=== PATIENT | female | born 1980 | race Caucasian/White ===

== ENCOUNTER → 2017-02-12 | Outpatient (CLI) | payer BC ==
[2017-02-12 10:03] LABS: Basophils % (A) 0 %; CH 31.6; CHCM 33.2; Eosinophils # (A) 0.3 k/uL (0-0.7); Eosinophils % (A) 3 %; HDW 2.39; HGB 13.2 gm/dL (11.4-16.0); Luc # (Auto) 0.09; Luc % (Auto) 1; Lymphocytes # (A) 1.9 k/uL (1.0-4.8); Lymphocytes % (A) 23 %; MCH 31.6 pg (25.0-35.0); MCV 95.9 fL (80.0-100.0); Mean Platelet Volume 7.9; Monocytes # (A) 0.5 k/uL (0-1.0); Monocytes % (A) 6 %; Neutrophils # (A) 5.6 k/uL (1.3-7.7); Neutrophils % (A) 67 %; RBC 4.17 m/uL (3.80-5.40); RDW 13.5 % (11.5-15.5); WBC 8.3 k/uL (3.8-10.6); WBC (Perox) 8.61
--- NOTE | 2017-02-12 10:05 | XR ---
EXAMINATION TYPE: XR chest 2V DATE OF EXAM: 02/12/2017 COMPARISON: NONE TECHNIQUE: PA and lateral views submitted. HISTORY: Congestion FINDINGS: The lungs are clear and there is no pneumothorax, pleural effusion, or focal pneumonia. IMPRESSION: 1. No acute process.
[2017-02-12 11:03] LABS: ALT 37 U/L (9-52); AST 25 U/L (14-36); Alkaline Phosphatase 85 U/L (38-126); Anion Gap 8 mmol/L; Blood Urea Nitrogen 11 mg/dL (7-17); Calcium 9.6 mg/dL (8.4-10.2); Carbon Dioxide 26 mmol/L (22-30); Chloride 107 mmol/L (98-107); Cholesterol 149 mg/dL (<200); Glucose 106 mg/dL (74-99); HDL Cholesterol 42 mg/dL (40-60); Non-African American GFR(MDRD) >60 (>60 ml/min/1.73 sqM); Potassium 4.2 mmol/L (3.5-5.1); Sodium 141 mmol/L (137-145); Total Bilirubin 0.7 mg/dL (0.2-1.3); Total Protein 6.8 g/dL (6.3-8.2)
== END | disposition home or self-care (01) ==
LOC: LABWHC1 09:16
PROVIDERS: ATTEND Family Medicine
DX: R05 Cough (principal); F33.1 Major depressive disorder, recurrent, moderate; I10 Essential (primary) hypertension; Z79.899 Other long term (current) drug therapy
CPT/HCPCS: 36415; 71020; 80053; 80061; 84439; 84443; 85025

== ENCOUNTER → 2017-03-28 | Outpatient (CLI) | payer BC ==
[2017-03-28 12:15] LABS: MCH 32.2 pg (25.0-35.0); MCHC 33.4 g/dL (31.0-37.0); MCV 96.2 fL (80.0-100.0); Mean Platelet Volume 7.4; Platelet Count 292 k/uL (150-450); RBC 4.05 m/uL (3.80-5.40); RDW 12.6 % (11.5-15.5); WBC 7.5 k/uL (3.8-10.6)
[2017-03-28 12:41] LABS: Anion Gap 11 mmol/L; Blood Urea Nitrogen 14 mg/dL (7-17); Calcium 9.2 mg/dL (8.4-10.2); Carbon Dioxide 25 mmol/L (22-30); Chloride 106 mmol/L (98-107); Glucose 91 mg/dL (74-99); Potassium 4.2 mmol/L (3.5-5.1); Sodium 142 mmol/L (137-145)
[2017-03-28 12:58] LABS: T4, Free (Free Thyroxine) 1.18 ng/dL (0.78-2.19)
== END | disposition home or self-care (01) ==
LOC: LABWHC1 11:42
PROVIDERS: ATTEND Family Medicine
DX: J20.9 Acute bronchitis, unspecified (principal); R05 Cough; F33.1 Major depressive disorder, recurrent, moderate; R94.6 Abnormal results of thyroid function studies
CPT/HCPCS: 36415; 80048; 83519; 84439; 84443; 84481; 85027; 85379

== ENCOUNTER 2017-09-08 15:31 | Emergency (ER) | payer BC, OTHER ==
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
--- NOTE | 2017-09-08 17:25 | XR ---
EXAMINATION TYPE: XR facial bones limited DATE OF EXAM: 09/08/2017 COMPARISON: NONE HISTORY: Pain TECHNIQUE: 2 view facial bones FINDINGS: There is a radiopaque foreign body along the lateral nares. Septum is midline. The paranasal sinuses are clear. Sella is unremarkable. No suspicious air-fluid le vels or mucosal thickening is evident. Piercing is at the right ear. IMPRESSION: 1. Unremarkable 2 view facial bones.
[2017-09-08 17:45] VITALS: BP 143/88; PULSE 64; RESP 18; TEMP 98.2
== END 2017-09-08 17:45 | disposition home or self-care (01) ==
LOC: EC 15:31
DX: L03.211 Cellulitis of face (principal); I10 Essential (primary) hypertension; F32.9 Major depressive disorder, single episode, unspecified; Z87.891 Personal history of nicotine dependence; Z79.899 Other long term (current) drug therapy; Z88.0 Allergy status to penicillin
CPT/HCPCS: 70140; 99283

== ENCOUNTER 2017-09-10 12:23 | Emergency (ER) | payer BC, OTHER ==
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
[2017-09-10 13:39] VITALS: BP 117/68; PULSE 65; RESP 16; TEMP 98.7
== END 2017-09-10 13:39 | disposition home or self-care (01) ==
LOC: EC 12:23
DX: H10.9 Unspecified conjunctivitis (principal); I10 Essential (primary) hypertension; F32.9 Major depressive disorder, single episode, unspecified; Z87.891 Personal history of nicotine dependence; Z79.899 Other long term (current) drug therapy; Z88.0 Allergy status to penicillin
CPT/HCPCS: 99283

== ENCOUNTER 2020-12-11 21:38 | Emergency (ER) | payer OTHER ==
[2020-12-11 21:51] VITALS: BP 111/64; PULSE 89; RESP 18; TEMP 98.7
--- NOTE | 2020-12-11 22:20 | XR ---
EXAMINATION TYPE: XR chest 2V DATE OF EXAM: 12/11/2020 COMPARISON: 02/12/2017 HISTORY: Cough and short of breath TECHNIQUE: FINDINGS: Heart and mediastinum are normal. Lungs are clear. Diaphragm is normal. Bony thorax is intact. IMPRESSION: Normal chest. No change.
--- NOTE | 2020-12-11 23:46 | ED ---
General Adult HPI - General Chief complaint: Upper Respiratory Infection Stated complaint: shortness of breath; hx of covid 2019 Time Seen by Provider: 12/11/20 23:20 Source: patient Mode of arrival: ambulatory Limitations: no limitations - History of Present Illness Initial comments: 40-year-old female with a past medical history of hypertension, GERD presents to the emergency room for a chief complaint of not feeling well. Patient states for the past few days she has had a cough and congestion. Patient does have a history of asthma. Denies shortness of breath at this time. Does have an inhaler at home however it is almost out. Patient states she was sick a few weeks ago and yesterday got over it when she started to get worse again. Denies fevers.Patient has no other complaints at this time including shortness of breath, chest pain, abdominal pain, nausea or vomiting, headache, or visual changes. - Related Data Home Medications Medication Instructions Recorded Confirmed Furosemide [Lasix] 20 mg PO DAILY 07/18/13 09/10/17 Labetalol HCl 300 mg PO BID 07/18/13 09/10/17 amLODIPine BESYLATE [Norvasc] 5 mg PO BID 07/18/13 09/10/17 Citalopram Hydrobromide [CeleXA] 20 mg PO DAILY 09/10/17 09/10/17 Previous Rx's Medication Instructions Recorded Sulfamethox-Tmp 800-160Mg [Bactrim 2 tab PO Q12HR 10 Days #40 tab 09/08/17 DS 800-160 mg] Polymyxin B-Trimeth Sulf Ophth 1 drops BOTH EYES Q6H 10 Days #5 ml 09/10/17 [Polytrim Opthalmic] Albuterol Inhaler [Ventolin Hfa 2 puff INHALATION RT-QID PRN #8 gm 12/11/20 Inhaler] Azithromycin [Zithromax Z-pack (6 250 mg PO DIRECTED #6 tab 12/11/20 tabs)] predniSONE 50 mg PO DAILY #5 tablet 12/11/20 Allergies Allergy/AdvReac Type Severity Reaction Status Date / Time Penicillins Allergy Mild Rash/Hives Verified 12/11/20 21:48 Review of Systems ROS Statement: Those systems with pertinent positive or pertinent negative responses have been documented in the HPI. ROS Other: All systems not noted in ROS Statement are negative. Past Medical History Past Medical History: GERD/Reflux, Hypertension Additional Past Medical History / Comment(s): Preeclampsia- May 28 2013 History of Any Multi-Drug Resistant Organisms: None Reported Past Surgical History: Adenoidectomy, Section, Cholecystectomy, Orthopedic Surgery, Tonsillectomy Additional Past Surgical History / Comment(s): pre eclampsia, c section 05/28/13 Knee arthroplasty Past Anesthesia/Blood Transfusion Reactions: Previous Problems w/ Anesthesia, Postoperative Nausea & Vomiting (PONV) Past Psychological History: Depression Smoking Status: Current every day smoker Past Alcohol Use History: Occasional Past Drug Use History: None Reported - Past Family History Father Brother(s) Family Medical History: GERD/Reflux, Hypertension Additional Family Medical History / Comment(s): BRONCHITIS, HAD GALLBLADDER SX 07-20- HAS INCISONS General Exam Limitations: no limitations General appearance: alert, in no apparent distress Head exam: Present: atraumatic Eye exam: Present: normal appearance, PERRL, EOMI. Absent: scleral icterus, conjunctival injection ENT exam: Present: normal exam, mucous membranes moist Neck exam: Present: normal inspection, full ROM. Absent: tenderness Respiratory exam: Present: wheezes (Minimal wheeze on exam). Absent: respiratory distress Cardiovascular Exam: Present: regular rate, normal rhythm, normal heart sounds Course Vital Signs 12/11/20 21:48 Temperature 98.7 F Pulse Rate 89 Respiratory 18 Rate Blood Pressure 111/64 O2 Sat by Pulse 92 L Oximetry Medical Decision Making - Medical Decision Making Vitals are stable. Patient is well-appearing. HPI and physical exam as documented. Rotavirus is negative. Chest x-ray shows a normal chest, no change. Patient is taking Mucinex which she will continue. Given asthma we'll start her on prednisone and give her another inhaler. Given she recently had an illness and then got worse again we will treat her with an antibiotic. She is ALLERGIC to amoxicillin. Patient will follow-up with her doctor. She will return for any worsening symptoms. - Lab Data Lab Results 12/11/20 Range/Units 21:51 Coronavirus (PCR) Not Detected (Not Detectd) Disposition Clinical Impression: Cough, Sinusitis Disposition: HOME SELF-CARE Condition: Good Instructions (If sedation given, give patient instructions): Upper Respiratory Infection (ED) Additional Instructions: Take medications as directed. Follow-up with your doctor. Return to the emergency room for any worsening symptoms. Prescriptions: predniSONE 50 mg PO DAILY #5 tablet Albuterol Inhaler [Ventolin Hfa Inhaler] 2 puff INHALATION RT-QID PRN #8 gm PRN Reason: Shortness Of Breath Azithromycin [Zithromax Z-pack (6 tabs)] 250 mg PO DIRECTED #6 tab Is patient prescribed a controlled substance at d/c from ED?: No Referrals: Lake Justice Jr, [Primary Care Provider] - 1-2 days Time of Disposition: 23:45
[2020-12-11] MEDS ORDERED: predniSONE 50 MG TAB PO STA (23:47)
[2020-12-11] MEDS ORDERED: AZITHROMYCIN 500 MG TAB PO STA (23:47)
== END 2020-12-12 00:14 | disposition home or self-care (01) ==
LOC: EC 21:38
DX: R05 Cough (principal); J32.9 Chronic sinusitis, unspecified; I10 Essential (primary) hypertension; K21.9 Gastro-esophageal reflux disease without esophagitis; F32.9 Major depressive disorder, single episode, unspecified; F17.200 Nicotine dependence, unspecified, uncomplicated; Z90.89 Acquired absence of other organs; Z20.822 Contact with and (suspected) exposure to COVID-19; Z88.0 Allergy status to penicillin; Z90.49 Acquired absence of other specified parts of digestive tract; Z87.59 Personal history of other complications of pregnancy, childbirth and the puerperium; Z79.899 Other long term (current) drug therapy
CPT/HCPCS: 99283; 87635; 71046; J7512

== ENCOUNTER 2022-08-15 12:28 | Emergency (ER) | payer OTHER ==
[2022-08-15 12:33] VITALS: RESP 18; TEMP 98.1
--- NOTE | 2022-08-15 13:04 | ED ---
Abdominal Pain HPI - General Chief Complaint: Abdominal Pain Stated Complaint: 5 weeks spotting Time Seen by Provider: 08/15/22 12:34 Source: patient, RN notes reviewed Mode of arrival: ambulatory Limitations: no limitations - History of Present Illness Initial Comments: 42-year-old female presents emergency Department with chief complaint of moderate abdominal pain, vaginal bleeding early . Patient is A0 she was she's around 5 weeks states that she started having some spotting yesterday which has worsened. Patient states she has mild discomfort in which she contacted her PIECE MAKER's office recommended to come emergency from for evaluation. She is O- blood type. Patient states she is seen an PIECE MAKER on a cardiac because she was listed as high risk as she has a history of help syndrome and states that she is advanced maternal age. Patient denies any dysuria no fevers chills no nausea vomiting. No change in bowel habits. - Related Data Home Medications Medication Instructions Recorded Confirmed Furosemide [Lasix] 20 mg PO DAILY 07/18/13 09/10/17 Labetalol HCl 300 mg PO BID 07/18/13 09/10/17 amLODIPine BESYLATE [Norvasc] 5 mg PO BID 07/18/13 09/10/17 Citalopram Hydrobromide [CeleXA] 20 mg PO DAILY 09/10/17 09/10/17 Previous Rx's Medication Instructions Recorded Sulfamethox-Tmp 800-160Mg [Bactrim 2 tab PO Q12HR 10 Days #40 tab 09/08/17 DS 800-160 mg] Polymyxin B-Trimeth Sulf Ophth 1 drops BOTH EYES Q6H 10 Days #5 ml 09/10/17 [Polytrim Opthalmic] Albuterol Inhaler [Ventolin Hfa 2 puff INHALATION RT-QID PRN #8 gm 12/11/20 Inhaler] Azithromycin [Zithromax Z-pack (6 250 mg PO DIRECTED #6 tab 12/11/20 tabs)] predniSONE 50 mg PO DAILY #5 tablet 12/11/20 Allergies Allergy/AdvReac Type Severity Reaction Status Date / Time Penicillins Allergy Mild Rash/Hives Verified 08/15/22 12:33 Review of Systems ROS Statement: Those systems with pertinent positive or pertinent negative responses have been documented in the HPI. ROS Other: All systems not noted in ROS Statement are negative. Past Medical History Past Medical History: GERD/Reflux, Hypertension Additional Past Medical History / Comment(s): Preeclampsia- May 28 2013 History of Any Multi-Drug Resistant Organisms: None Reported Past Surgical History: Adenoidectomy, Section, Cholecystectomy, Orthopedic Surgery, Tonsillectomy Additional Past Surgical History / Comment(s): pre eclampsia, c section 05/28/13 Knee arthroplasty Past Anesthesia/Blood Transfusion Reactions: Previous Problems w/ Anesthesia, Postoperative Nausea & Vomiting (PONV) Past Psychological History: Depression Smoking Status: Current every day smoker Past Alcohol Use History: Occasional Past Drug Use History: None Reported - Past Family History Father Brother(s) Family Medical History: GERD/Reflux, Hypertension Additional Family Medical History / Comment(s): BRONCHITIS, HAD GALLBLADDER SX 07-20-13 HAS INCISONS General Exam Limitations: no limitations General appearance: alert, in no apparent distress Head exam: Present: atraumatic, normocephalic, normal inspection Eye exam: Present: normal appearance, PERRL, EOMI. Absent: scleral icterus, conjunctival injection, periorbital swelling Respiratory exam: Present: normal lung sounds bilaterally. Absent: respiratory distress, wheezes, rales, rhonchi, stridor Cardiovascular Exam: Present: regular rate, normal rhythm, normal heart sounds. Absent: systolic murmur, diastolic murmur, rubs, gallop, clicks GI/Abdominal exam: Present: soft, normal bowel sounds. Absent: distended, tenderness, guarding, rebound, rigid Back exam: Absent: CVA tenderness (R), CVA tenderness (L) Neurological exam: Present: alert Course Vital Signs 08/15/22 08/15/22 12:29 15:32 Temperature 98.1 F Pulse Rate 82 65 Respiratory 18 18 Rate Blood Pressure 146/92 144/82 O2 Sat by Pulse 99 97 Oximetry Medical Decision Making - Medical Decision Making Was pt. sent in by a medical professional or institution (, PA, CRUSHER AND BINDER OPERATOR, urgent care, hospital, or [facility]...) When possible be specific @ -[No] Did you speak to anyone other than the patient for history (EMS, parent, family, police, friend...)? What history was obtained from this source @ -[No] Did you review nursing and triage notes (agree or disagree)? Why? @ -[I reviewed and agree with nursing and triage notes] Were old charts reviewed (outside hosp., previous admission, EMS record, old EKG, old radiological studies, urgent care reports/EKG's, [facility] records)? Report findings @ -[No old charts were reviewed] Differential Diagnosis (chest pain, altered mental status, abdominal pain women, abdominal pain men, vaginal bleeding, weakness, fever, dyspnea, syncope, headache, dizziness, GI bleed, back pain, seizure, CVA, palpatations, mental health, musculoskeletal)? @ -[Differential Abdominal Pain Women: Appendicitis, Cholecystitis, diverticulosis, ischemic bowel, pancreatitis, hepatitis, UTI, gastroenteritis, AAA, incarcerated hernia, bowel obstruction, constipation, inflammatory bowel, hepatitis, peptic ulcer disease, splenic infarction, perforated viscus, vulvitis, ovarian torsion, PID, kidney stone, placenta abruption, this is not meant to be an all-inclusive listle] EKG interpreted by me (3pts min.). @ -[As above] X-rays interpreted by me (1pt min.). @ -[None done] CT interpreted by me (1pt min.). @ -[Ultrasound transvaginal shows evidence of left complex, no IUP] U/S interpreted by me (1pt. min.). @ -[None done] What testing was considered but not performed or refused? (CT, X-rays, U/S, labs)? Why? @ -[None] What meds were considered but not given or refused? Why? @ -[None] Did you discuss the management of the patient with other professionals (professionals i.e. , PA, CRUSHER AND BINDER OPERATOR, lab, RT, psych nurse, social work supervisor, database admin, teacher, customs officer, case checker)? Give summary @ -[Discussed the case with Dr. Luna given patient is O- blood type and current miscarriage she states that the patient does not require RhoGAM as she did not complete to 8 weeks] Was smoking cessation discussed for >3mins.? @ -[No] Was critical care preformed (if so, how long)? @ -[No] Were there social determinants of health that impacted care today? How? (Homelessness, low income, unemployed, alcoholism, drug addiction, transportation, low edu. Level, literacy, decrease access to med. care, group home, rehab)? @ -[No] Was there de-escalation of care discussed even if they declined (Discuss DNR or withdrawal of care, Hospice)? DNR status @ -[No] What co-morbidities impacted this encounter? (DM, HTN, Smoking, COPD, CAD, Cancer, CVA, ARF, Chemo, Hep., AIDS, mental health diagnosis, sleep apnea, morbid obesity)? @ -[None] Was patient admitted / discharged? Hospital course, mention meds given and route, prescriptions, significant lab abnormalities, going to OR and other pertinent info. @ -[Discharge patient has evidence of miscarriage. Patient's case discussed with Dr. Luna. Patient does not require RhoGAM. Patient had repeat labs in 2 days.] Undiagnosed new problem with uncertain prognosis? @ -[No] Drug Therapy requiring intensive monitoring for toxicity (Heparin, Nitro, Insulin, Cardizem)? @ -[No] Were any procedures done? @ -[No] Diagnosis/symptom? @ -[Miscarriage] Acute, or Chronic, or Acute on Chronic? @ -[Acute] Uncomplicated (without systemic symptoms) or Complicated (systemic symptoms)? @ -[Uncomplicated] Side effects of treatment? @ -[No] Exacerbation, Progression, or Severe Exacerbation? @ -[No] Poses a threat to life or bodily function? How? (Chest pain, USA, MT, pneumonia, PE, COPD, DKA, ARF, appy, cholecystitis, CVA, Diverticulitis, Homicidal, Suicidal, threat to staff... and all critical care pts) @ -[No] - Lab Data Result diagrams: 08/15/22 12:57 08/15/22 12:57 Lab Results 08/15/22 08/15/22 08/15/22 Range/Units 12:57 12:57 12:58 WBC 7.8 (3.8-10.6) k/uL RBC 4.36 (3.80-5.40) m/uL Hgb 14.0 (11.4-16.0) gm/dL Hct 41.4 (34.0-46.0) % MCV 94.9 (80.0-100.0) fL MCH 32.1 (25.0-35.0) pg MCHC 33.8 (31.0-37.0) g/dL RDW 12.4 (11.5-15.5) % Plt Count 262 (150-450) k/uL MPV 7.7 Neutrophils % 64 % Lymphocytes % 27 % Monocytes % 5 % Eosinophils % 3 % Basophils % 0 % Neutrophils # 5.1 (1.3-7.7) k/uL Lymphocytes # 2.1 (1.0-4.8) k/uL Monocytes # 0.4 (0-1.0) k/uL Eosinophils # 0.2 (0-0.7) k/uL Basophils # 0.0 (0-0.2) k/uL Sodium 139 (137-145) mmol/L Potassium 4.0 (3.5-5.1) mmol/L Chloride 107 (98-107) mmol/L Carbon Dioxide 23 (22-30) mmol/L Anion Gap 9 mmol/L BUN 10 (7-17) mg/dL Creatinine 0.72 (0.52-1.04) mg/dL Est GFR (CKD-EPI)AfAm >90 (>60 ml/min/1.73 sqM) Est GFR (CKD-EPI)NonAf >90 (>60 ml/min/1.73 sqM) Glucose 141 H (74-99) mg/dL Calcium 8.9 (8.4-10.2) mg/dL Total Bilirubin 0.9 (0.2-1.3) mg/dL AST 28 (14-36) U/L ALT 25 (4-34) U/L Alkaline Phosphatase 69 (38-126) U/L Total Protein 6.8 (6.3-8.2) g/dL Albumin 4.3 (3.5-5.0) g/dL HCG, Quant 6.2 mIU/mL Urine Color Urine Appearance (Clear) Urine pH (5.0-8.0) Ur Specific [place] (1.001-1.035) Urine Protein (Negative) Urine Glucose (UA) (Negative) Urine Ketones (Negative) Urine Blood (Negative) Urine Nitrite (Negative) Urine Bilirubin (Negative) Urine Urobilinogen (<2.0) mg/dL Ur Leukocyte Esterase (Negative) Urine RBC (0-5) /hpf Urine WBC (0-5) /hpf Ur Squamous Epith Cells (0-4) /hpf Urine Mucus (None) /hpf Blood Type O Negative Blood Type Recheck O Neg Bld Type Recheck Status No Antibody Screen 08/15/22 08/15/22 Range/Units 12:58 13:46 WBC (3.8-10.6) k/uL RBC (3.80-5.40) m/uL Hgb (11.4-16.0) gm/dL Hct (34.0-46.0) % MCV (80.0-100.0) fL MCH (25.0-35.0) pg MCHC (31.0-37.0) g/dL RDW (11.5-15.5) % Plt Count (150-450) k/uL MPV Neutrophils % % Lymphocytes % % Monocytes % % Eosinophils % % Basophils % % Neutrophils # (1.3-7.7) k/uL Lymphocytes # (1.0-4.8) k/uL Monocytes # (0-1.0) k/uL Eosinophils # (0-0.7) k/uL Basophils # (0-0.2) k/uL Sodium (137-145) mmol/L Potassium (3.5-5.1) mmol/L Chloride (98-107) mmol/L Carbon Dioxide (22-30) mmol/L Anion Gap mmol/L BUN (7-17) mg/dL Creatinine (0.52-1.04) mg/dL Est GFR (CKD-EPI)AfAm (>60 ml/min/1.73 sqM) Est GFR (CKD-EPI)NonAf (>60 ml/min/1.73 sqM) Glucose (74-99) mg/dL Calcium (8.4-10.2) mg/dL Total Bilirubin (0.2-1.3) mg/dL AST (14-36) U/L ALT (4-34) U/L Alkaline Phosphatase (38-126) U/L Total Protein (6.3-8.2) g/dL Albumin (3.5-5.0) g/dL HCG, Quant mIU/mL Urine Color Yellow Urine Appearance Clear (Clear) Urine pH 5.5 (5.0-8.0) Ur Specific [place] 1.024 (1.001-1.035) Urine Protein Trace H (Negative) Urine Glucose (UA) Negative (Negative) Urine Ketones Negative (Negative) Urine Blood Large H (Negative) Urine Nitrite Negative (Negative) Urine Bilirubin Negative (Negative) Urine Urobilinogen <2.0 (<2.0) mg/dL Ur Leukocyte Esterase Negative (Negative) Urine RBC >182 H (0-5) /hpf Urine WBC 27 H (0-5) /hpf Ur Squamous Epith Cells 3 (0-4) /hpf Urine Mucus Rare H (None) /hpf Blood Type Blood Type Recheck Bld Type Recheck Status Antibody Screen NEGATIVE Disposition Clinical Impression: Miscarriage Disposition: HOME SELF-CARE Condition: Stable Instructions (If sedation given, give patient instructions): Miscarriage (ED) Additional Instructions: Please return to the Emergency Department if symptoms worsen or any other concerns. Is patient prescribed a controlled substance at d/c from ED?: No Referrals: Ej Brown DO [Primary Care Provider] - 1-2 days Time of Disposition: 15:20
[2022-08-15 13:15] LABS: Basophils % (A) 0 %; Eosinophils # (A) 0.2 k/uL (0-0.7); Eosinophils % (A) 3 %; HCT 41.4 % (34.0-46.0); Lymphocytes # (A) 2.1 k/uL (1.0-4.8); Lymphocytes % (A) 27 %; MCH 32.1 pg (25.0-35.0); MCHC 33.8 g/dL (31.0-37.0); MCV 94.9 fL (80.0-100.0); Mean Platelet Volume 7.7; Monocytes # (A) 0.4 k/uL (0-1.0); Monocytes % (A) 5 %; Neutrophils # (A) 5.1 k/uL (1.3-7.7); Neutrophils % (A) 64 %; Platelet Count 262 k/uL (150-450); RBC 4.36 m/uL (3.80-5.40); RDW 12.4 % (11.5-15.5); WBC 7.8 k/uL (3.8-10.6)
[2022-08-15 13:29] LABS: ALT 25 U/L (4-34); AST 28 U/L (14-36); African American GFR (CKD) >90 (>60 ml/min/1.73 sqM); Albumin 4.3 g/dL (3.5-5.0); Alkaline Phosphatase 69 U/L (38-126); Anion Gap 9 mmol/L; Blood Urea Nitrogen 10 mg/dL (7-17); Calcium 8.9 mg/dL (8.4-10.2); Carbon Dioxide 23 mmol/L (22-30); Chloride 107 mmol/L (98-107); Glucose 141 mg/dL (74-99); Non-African American GFR(CKD) >90 (>60 ml/min/1.73 sqM); Sodium 139 mmol/L (137-145); Total Bilirubin 0.9 mg/dL (0.2-1.3); Total Protein 6.8 g/dL (6.3-8.2)
[2022-08-15 13:45] LABS: HCG,Quantitative Serum 6.2 mIU/mL
[2022-08-15 14:05] LABS: Appearance,Urine Clear (Clear); Bilirubin,Urine Negative (Negative); Blood,Urine Large (Negative); Color,Urine Yellow; Glucose,Urine (UA) Negative (Negative); Ketones,Urine Negative (Negative); Leukocyte Esterase,Urine Negative (Negative); Mucus,Urine Rare /hpf; Nitrite,Urine Negative (Negative); PH, Urine 5.5 (5.0-8.0); Protein,Urine Trace (Negative); RBC,Urine >182 /hpf (0-5); Specific Gravity,Urine 1.024 (1.001-1.035); Squamous Epithelial Cell,Urine 3 /hpf (0-4); Urobilinogen,Urine <2.0 mg/dL (<2.0); WBC,Urine 27 /hpf (0-5)
--- NOTE | 2022-08-15 14:58 | US ---
EXAMINATION TYPE: Transabdominal DATE OF EXAM: 08/15/2022 2:34 PM COMPARISON: None for this , [place] 2012 CLINICAL INDICATION: Female, 42 years old with history of pain, bleeding; Pain, bleeding x 2 days. Hx 1 C section. . EXAM PERFORMED: Transvaginal (TV) and Transabdominal (TA) EXAM MEASUREMENTS: GESTATIONAL AGE / DATING Physician Established: Not yet established Dates by LMP: (5 weeks/1 day) EDC: 04/16/2023 Dates by First Scan: This is first scan Dates by Current Scan for: No IUP seen at this time. MATERNAL ANATOMY Uterus: 8.6 x 6.2 x 4.4 cm. Anechoic fluid seen in cervix: 0.3 x 0.3 x 0.1 cm. Right Ovary: 2.5 x 1.8 x 1.4 cm Left Ovary: 4.1 x 1.7 x 1.8 cm. Complex area seen: 1.9 x 1.6 x 1.5 cm. Post CDS / Adnexa: Appear wnl Presence of free fluid: No Presence of corpus luteal cyst: Possible within left ovary, complex area seen: 1.9 x 1.6 x 1.5 cm. Presence of subchorionic bleed: -- GESTATION / SURVEY IUP: No IUP seen at this time Date of LMP: 07/10/2022 Beta HcG (if available): 6.2 mIU/mL IMPRESSION: No intrauterine seen. There is a complex area measuring 1.9 x 1.5 cm within the left ovary. Small amount of fluid in the ce rvix seen. Differential diagnosis would include ectopic , missed or normal pregnanc y too early to detect. Recommend correlate clinically with serial beta-hCG and pelvic ultrasound as c linically warranted.
[2022-08-15 15:34] VITALS: BP 144/82; PULSE 65
== END 2022-08-15 15:34 | disposition home or self-care (01) ==
LOC: EC 12:28
DX: O03.9 Complete or unspecified spontaneous abortion without complication (principal); I10 Essential (primary) hypertension; F32.A Depression, unspecified; F17.200 Nicotine dependence, unspecified, uncomplicated; Z79.899 Other long term (current) drug therapy; Z88.0 Allergy status to penicillin; Z90.49 Acquired absence of other specified parts of digestive tract
CPT/HCPCS: 36415; 76801; 76817; 80053; 81001; 84702; 85025; 86850; 86900; 86901; 99284

== ENCOUNTER → 2022-08-17 | Outpatient (CLI) | payer OTHER | END | disposition home or self-care (01) | LOC: LABWHC1 14:34 | PROVIDERS: ATTEND Family Medicine | DX: O20.0 Threatened abortion (principal); Z3A.00 Weeks of gestation of pregnancy not specified | CPT/HCPCS: 36415; 84702 ==

== ENCOUNTER 2023-01-18 17:16 | Emergency (ER) | payer OTHER ==
[2023-01-18 18:44] VITALS: RESP 18; TEMP 99
[2023-01-18] MEDS ORDERED: PROPARACAINE 0.5% OPHTH DROPS 15 ML BTL RIGHT EYE STA (19:17)
[2023-01-18] MEDS ORDERED: FLUORESCEIN STRIPS 1 MG STRIP RIGHT EYE ONE (19:17)
[2023-01-18] MEDS ORDERED: valACYclovir HCL 1,000 MG TABLET PO STA (20:34)
--- NOTE | 2023-01-18 20:41 | ED ---
General Adult HPI - General Chief complaint: Recheck/Abnormal Lab/Rx Stated complaint: shingles Time Seen by Provider: 01/18/23 19:15 Source: patient Mode of arrival: ambulatory Limitations: no limitations - History of Present Illness Initial comments: 42-year-old female sent from urgent care with complaints of right eye discomfort. Patient was diagnosed with shingles at urgent care today. Patient states that these symptoms started a few days ago, she was experiencing some tingling along the right side of the back in the arm. She then started to develop painful burning bumps. She states that today she is feeling that same tingling sensation to the right side of her face near her eye and also in her eye. No vision changes. No discharge. No injury or trauma. No fevers or chills. She was started on valacyclovir by urgent care and instructed to report to the ER for further evaluation. - Related Data Home Medications Medication Instructions Recorded Confirmed Furosemide [Lasix] 20 mg PO DAILY 07/18/13 09/10/17 Labetalol HCl 300 mg PO BID 07/18/13 09/10/17 amLODIPine BESYLATE [Norvasc] 5 mg PO BID 07/18/13 09/10/17 Citalopram Hydrobromide [CeleXA] 20 mg PO DAILY 09/10/17 09/10/17 Previous Rx's Medication Instructions Recorded Sulfamethox-Tmp 800-160Mg [Bactrim 2 tab PO Q12HR 10 Days #40 tab 09/08/17 DS 800-160 mg] Polymyxin B-Trimeth Sulf Ophth 1 drops BOTH EYES Q6H 10 Days #5 ml 09/10/17 [Polytrim Opthalmic] Albuterol Inhaler [Ventolin Hfa 2 puff INHALATION RT-QID PRN #8 gm 12/11/20 Inhaler] Azithromycin [Zithromax Z-pack (6 250 mg PO DIRECTED #6 tab 12/11/20 tabs)] predniSONE 50 mg PO DAILY #5 tablet 12/11/20 Allergies Allergy/AdvReac Type Severity Reaction Status Date / Time Penicillins Allergy Mild Rash/Hives Verified 01/18/23 18:25 Review of Systems ROS Statement: Those systems with pertinent positive or pertinent negative responses have been documented in the HPI. ROS Other: All systems not noted in ROS Statement are negative. Past Medical History Past Medical History: GERD/Reflux, Hypertension Additional Past Medical History / Comment(s): Preeclampsia- May 28 2013 History of Any Multi-Drug Resistant Organisms: None Reported Past Surgical History: Adenoidectomy, Section, Cholecystectomy, Orthopedic Surgery, Tonsillectomy Additional Past Surgical History / Comment(s): pre eclampsia, c section 05/28/13 Knee arthroplasty Past Anesthesia/Blood Transfusion Reactions: Previous Problems w/ Anesthesia, Postoperative Nausea & Vomiting (PONV) Past Psychological History: Depression Smoking Status: Current every day smoker Past Alcohol Use History: Occasional Past Drug Use History: None Reported - Past Family History Father Brother(s) Family Medical History: GERD/Reflux, Hypertension Additional Family Medical History / Comment(s): BRONCHITIS, HAD GALLBLADDER SX 07-20- HAS INCISONS General Exam Limitations: no limitations General appearance: alert, in no apparent distress Head exam: Present: atraumatic, normocephalic, normal inspection Eye exam: Present: normal appearance, EOMI, other (No uptake seen on fluorescein staining and Wood's lamp examination) Neck exam: Present: normal inspection, full ROM Respiratory exam: Absent: respiratory distress Neurological exam: Present: alert, oriented X3 Psychiatric exam: Present: normal affect, normal mood Skin exam: Present: rash (Painful clusters of erythematous bumps following the dermatome line on the right side of the back and arm) Course Vital Signs 01/18/23 18:23 Temperature 99 F Pulse Rate 74 Respiratory 18 Rate Blood Pressure 131/73 O2 Sat by Pulse 98 Oximetry Medical Decision Making - Medical Decision Making Was pt. sent in by a medical professional or institution (, PA, PRODUCTION MATERIAL COORDINATOR, urgent care, hospital, or detention...) When possible be specific @ -No Did you speak to anyone other than the patient for history (EMS, parent, family, police, friend...)? What history was obtained from this source @ -No Did you review nursing and triage notes (agree or disagree)? Why? @ -I reviewed and agree with nursing and triage notes Were old charts reviewed (outside hosp., previous admission, EMS record, old EKG, old radiological studies, urgent care reports/EKG's, detention records)? Report findings @ -No old charts were reviewed Differential Diagnosis (chest pain, altered mental status, abdominal pain women, abdominal pain men, vaginal bleeding, weakness, fever, dyspnea, syncope, headache, dizziness, GI bleed, back pain, seizure, CVA, palpatations, mental health, musculoskeletal)? @ -Differential includes herpes zoster, herpes zoster ophthalmicus, cellulitis, ALLERGIC reaction, this is not an all inclusive list EKG interpreted by me (3pts min.). @ -As above X-rays interpreted by me (1pt min.). @ -None done CT interpreted by me (1pt min.). @ -None done U/S interpreted by me (1pt. min.). @ -None done What testing was considered but not performed or refused? (CT, X-rays, U/S, labs)? Why? @ -None What meds were considered but not given or refused? Why? @ -None Did you discuss the management of the patient with other professionals (professionals i.e. , PA, PRODUCTION MATERIAL COORDINATOR, lab, RT, psych nurse, social work case manager, geography instructor, teacher, chief risk officer, lining caser)? Give summary @ -No Was smoking cessation discussed for >3mins.? @ -No Was critical care preformed (if so, how long)? @ -No Were there social determinants of health that impacted care today? How? (Homelessness, low income, unemployed, alcoholism, drug addiction, transportation, low edu. Level, literacy, decrease access to med. care, [facility], rehab)? @ -No Was there de-escalation of care discussed even if they declined (Discuss DNR or withdrawal of care, Hospice)? DNR status @ -No What co-morbidities impacted this encounter? (DM, HTN, Smoking, COPD, CAD, Cancer, CVA, ARF, Chemo, Hep., AIDS, mental health diagnosis, sleep apnea, morbid obesity)? @ -None Was patient admitted / discharged? Hospital course, mention meds given and route, prescriptions, significant lab abnormalities, going to OR and other pertinent info. @ -42-year-old female presenting with chief complaint of right eye discomfort. She was diagnosed with shingles at urgent care today and advised to report to the ER by urgent care. No injury or trauma. No vision changes. On fluorescein staining and Wood's lamp examination there is no uptake seen. Patient was sent and a prescription of valacyclovir by urgent care, she is given her first dose here and instructed to follow-up with PCP and ophthalmology. Follow-up with PCP. Report back to ER with any new or worsening symptoms. Discussed return parameters and answered all questions. Patient conveyed verbal understanding and agreed to the plan. I discussed this case in detail with my attending Dr. Lewis Undiagnosed new problem with uncertain prognosis? @ -No Drug Therapy requiring intensive monitoring for toxicity (Heparin, Nitro, Insulin, Cardizem)? @ -No Were any procedures done? @ -No Diagnosis/symptom? @ -Shingles Acute, or Chronic, or Acute on Chronic? @ -shingles Uncomplicated (without systemic symptoms) or Complicated (systemic symptoms)? @ -Uncomplicated Side effects of treatment? @ -No Exacerbation, Progression, or Severe Exacerbation? @ -No Poses a threat to life or bodily function? How? (Chest pain, USA, MT, pneumonia, PE, COPD, DKA, ARF, appy, cholecystitis, CVA, Diverticulitis, Homicidal, Suicidal, threat to staff... and all critical care pts) @ -No Disposition Clinical Impression: Shinglindira Disposition: HOME SELF-CARE Condition: Good Instructions (If sedation given, give patient instructions): Antonio (ED) Additional Instructions: Follow-up with PCP and ophthalmology. Report back to ER with any new or worsening symptoms. Take antiviral medication as prescribed by urgent care Is patient prescribed a controlled substance at d/c from ED?: No Referrals: Ej Brown DO [Primary Care Provider] - 1-2 days Jeremy De MD [STAFF PHYSICIAN] - 1-2 days Time of Disposition: 20:39
[2023-01-18 21:05] VITALS: BP 144/70; PULSE 70
== END 2023-01-18 21:22 | disposition home or self-care (01) ==
LOC: EC 17:16
DX: B02.30 Zoster ocular disease, unspecified (principal); I10 Essential (primary) hypertension; F32.A Depression, unspecified; F17.200 Nicotine dependence, unspecified, uncomplicated; Z79.899 Other long term (current) drug therapy; Z88.0 Allergy status to penicillin
CPT/HCPCS: 99283

== ENCOUNTER 2023-11-11 20:03 | Observation (INO) | payer OTHER ==
[2023-11-11 20:43] LABS: Basophils % (A) 0 %; Eosinophils # (A) 0.2 k/uL (0-0.7); Eosinophils % (A) 2 %; HCT 42.1 % (34.0-46.0); HGB 14.4 gm/dL (11.4-16.0); Lymphocytes # (A) 3.5 k/uL (1.0-4.8); Lymphocytes % (A) 32 %; MCH 32.4 pg (25.0-35.0); MCHC 34.1 g/dL (31.0-37.0); MCV 94.8 fL (80.0-100.0); Mean Platelet Volume 7.9; Monocytes # (A) 0.5 k/uL (0-1.0); Monocytes % (A) 5 %; Neutrophils # (A) 6.7 k/uL (1.3-7.7); Neutrophils % (A) 61 %; Platelet Count 284 k/uL (150-450); RBC 4.44 m/uL (3.80-5.40); RDW 12.5 % (11.5-15.5)
[2023-11-11 20:54] LABS: INR 0.9 (<1.2); Partial Thromboplastin Time 24.1 sec (22.0-30.0); Prothrombin Time 10.3 sec (10.0-12.5)
[2023-11-11 21:09] LABS: ALT 26 U/L (4-34); AST 29 U/L (14-36); African American GFR (CKD) >90 (>60 ml/min/1.73 sqM); Albumin 4.4 g/dL (3.5-5.0); Alkaline Phosphatase 84 U/L (38-126); Anion Gap 3 mmol/L; Blood Urea Nitrogen 10 mg/dL (7-17); Calcium 9.5 mg/dL (8.4-10.2); Carbon Dioxide 24 mmol/L (22-30); Chloride 103 mmol/L (98-107); Glucose 132 mg/dL (74-99); Lipase 162 U/L (23-300); Non-African American GFR(CKD) 83 (>60 ml/min/1.73 sqM); Potassium 3.8 mmol/L (3.5-5.1); Sodium 130 mmol/L (137-145); Total Bilirubin 0.6 mg/dL (0.2-1.3)
--- NOTE | 2023-11-11 22:37 | ED ---
Chest Pain HPI - General Chief Complaint: Chest Pain Stated Complaint: Chest/Back Pain,SOB Time Seen by Provider: 11/11/23 21:36 Source: patient, RN notes reviewed, old records reviewed Mode of arrival: ambulatory Limitations: no limitations - History of Present Illness Initial Comments: This is a 43-year-old female to the ER for evaluation of left-sided chest pain left-sided back pain chest pain in the left chest to the back. No shortness of breath is very anxious here in the ER with history of high blood pressure and smoking. No prior history of cardiac testing no stress test symptoms began yesterday persisted today with heaviness on the left side of the chest to the back MD Complaint: chest pain -: hour(s) Onset: during rest, during exertion Pain Location: left chest Severity: moderate Severity scale (1-10): 7 Quality: tightness, aching, heaviness Improves With: nothing Worsens With: nothing Anginal Symptoms: dyspnea, sense of impending doom Other Symptoms: palpitations Treatments Prior to Arrival: none - Related Data Home Medications Medication Instructions Recorded Confirmed Furosemide [Lasix] 20 mg PO DAILY 07/18/13 11/12/23 amLODIPine [Norvasc] 5 mg PO BID 11/12/23 11/12/23 Previous Rx's Medication Instructions Recorded Aspirin 81 mg PO DAILY #30 tab 11/12/23 Allergies Allergy/AdvReac Type Severity Reaction Status Date / Time Penicillins Allergy Unknown Rash/Hives/Itchy Verified 11/12/23 07:23 Throat Review of Systems ROS Statement: Those systems with pertinent positive or pertinent negative responses have been documented in the HPI. ROS Other: All systems not noted in ROS Statement are negative. EKG Findings - EKG Comments: EKG Findings:: EKG is sinus 94 SD 153 QRS 94 QTc 402 - EKG Results: EKG: interpreted by ELIAZAR Past Medical History Past Medical History: GERD/Reflux, Hypertension Additional Past Medical History / Comment(s): Preeclampsia- May 28 2013 History of Any Multi-Drug Resistant Organisms: None Reported Past Surgical History: Adenoidectomy, Section, Cholecystectomy, Orthopedic Surgery, Tonsillectomy Additional Past Surgical History / Comment(s): pre eclampsia, c section 05/28/13 Knee arthroplasty Past Anesthesia/Blood Transfusion Reactions: Previous Problems w/ Anesthesia, Postoperative Nausea & Vomiting (PONV) Past Psychological History: Depression Smoking Status: Current every day smoker Past Alcohol Use History: Occasional Past Drug Use History: None Reported - Past Family History Father Brother(s) Family Medical History: GERD/Reflux, Hypertension Additional Family Medical History / Comment(s): BRONCHITIS, HAD GALLBLADDER SX 5-5-14 HAS INCISONS General Exam Limitations: no limitations General appearance: alert, in no apparent distress Head exam: Present: atraumatic, normocephalic, normal inspection Eye exam: Present: normal appearance, PERRL, EOMI. Absent: scleral icterus, conjunctival injection, periorbital swelling ENT exam: Present: normal exam, mucous membranes moist Neck exam: Present: normal inspection. Absent: tenderness, meningismus, lymphadenopathy Respiratory exam: Present: normal lung sounds bilaterally. Absent: respiratory distress, wheezes, rales, rhonchi, stridor Cardiovascular Exam: Present: regular rate, normal rhythm, normal heart sounds. Absent: systolic murmur, diastolic murmur, rubs, gallop, clicks GI/Abdominal exam: Present: soft, normal bowel sounds. Absent: distended, tenderness, guarding, rebound, rigid Extremities exam: Present: normal inspection, full ROM, normal capillary refill. Absent: tenderness, pedal edema, joint swelling, calf tenderness Back exam: Present: normal inspection Neurological exam: Present: alert, oriented X3, CN II-XII intact Psychiatric exam: Present: normal affect, normal mood Skin exam: Present: warm, dry, intact, normal color. Absent: rash Course Vital Signs 11/11/23 11/11/23 11/12/23 20:09 22:20 00:00 Temperature 98.0 F 97.9 F Pulse Rate 81 63 75 Respiratory 18 15 16 Rate Blood Pressure 149/90 128/80 127/70 O2 Sat by Pulse 99 99 99 Oximetry 11/12/23 11/12/23 11/12/23 01:00 03:00 04:27 Temperature Pulse Rate 68 64 58 L Respiratory 15 14 14 Rate Blood Pressure 123/72 O2 Sat by Pulse 98 99 96 Oximetry 11/12/23 11/12/23 11/12/23 06:01 07:45 15:03 Temperature 97.8 F Pulse Rate 62 77 67 Respiratory 16 18 18 Rate Blood Pressure 127/86 138/82 154/98 O2 Sat by Pulse 98 100 98 Oximetry - Reevaluation(s) Reevaluation #1: 11/11/23 22:40 Medical records reviewed Reevaluation #2: 11/12/23 00:30 Patient symptoms unchanged still with occasional chest pain Reevaluation #3: 11/12/23 00:30 Patient informed of results and questions answered Reevaluation #4: Was pt. sent in by a medical professional or institution (, [facility], [facility], urgent care, hospital, or half-way...) When possible be specific @ -no Did you speak to anyone other than the patient for history (EMS, parent, family, police, friend...)? What history was obtained from this source @ -no Did you review nursing and triage notes (agree or disagree)? Why? @ -agree Are old charts reviewed (outside hosp., previous admission, EMS record, old EKG, old radiological studies, urgent care reports/EKG's, half-way records)? Report findings @ -yes Differential Diagnosis (chest pain, altered mental status, abdominal pain women, abdominal pain men, vaginal bleeding, weakness, fever, dyspnea, syncope, headache, dizziness, GI bleed, back pain, seizure, CVA, palpatations, mental health, musculoskeletal)? @ -prior EKG interpreted by me (3pts min.). @ -yes X-rays interpreted by me (1pt min.). @ -yes negative for acute disease CT interpreted by me (1pt min.). @ -no U/S interpreted by me (1pt. min.). @ -no What testing was considered but not performed or refused? (CT, X-rays, U/S, labs)? Why? @ -none What meds were considered but not given or refused? Why? @ -none Did you discuss the management of the patient with other professionals (professionals i.e. , [facility], [facility], lab, RT, psych nurse, social work professor, simulation analyst, teacher, national service officer, director of casework services)? Give summary @ -no Was smoking cessation discussed for >3mins.? @ -no Was critical care preformed (if so, how long)? @ -no Were there social determinants of health that impacted care today? How? (Homelessness, low income, unemployed, alcoholism, drug addiction, transportation, low edu. Level, literacy, decrease access to med. care, residential, rehab)? @ -none Was there de-escalation of care discussed even if they declined (Discuss DNR or withdrawal of care, Hospice)? DNR status @ -no What co-morbidities impacted this encounter? (DM, HTN, Smoking, COPD, CAD, Cancer, CVA, ARF, Chemo, Hep., AIDS, mental health diagnosis, sleep apnea, morbid obesity)? @ -none Was patient admitted / discharged? Hospital course, mention meds given and route, prescriptions, significant lab abnormalities, going to OR and other pertinent info. @ - 43 Female who will be admitted to the emergency department for chest pain observation with heaviness in her chest and heaviness here in the emergency department Admitted Undiagnosed new problem with uncertain prognosis? @ -no Drug Therapy requiring intensive monitoring for toxicity (Heparin, Nitro, Insulin, Cardizem)? @ -no Were any procedures done? @ -no Diagnosis/symptom? @ -Chest pain Acute, or Chronic, or Acute on Chronic? @ -Acute Uncomplicated (without systemic symptoms) or Complicated (systemic symptoms)? @ -Complicated Side effects of treatment? @ -no Exacerbation, Progression, or Severe Exacerbation? @ -exacerbation Poses a threat to life or bodily function? How? (Chest pain, [place], [place], pneumonia, PE, COPD, DKA, ARF, appy, cholecystitis, CVA, Diverticulitis, Homicidal, Suicidal, threat to staff... and all critical care pts) @ -yes chest pain Reevaluation #5: Differential Chest Pain: Stable Angina, Unstable Angina, STEMI, NSTEMI Aortic Dissection, Pneumothorax, Musculoskeletal, Esophageal Spasm GERD, Cholecystitis, Pancreatitis, Zoster, this is not meant to be an all-inclusive list. - Consultations Consultation #1: Spoke with Dr. Carranza who agrees to admit this patient Chest Pain MDM - MDM 43 Female who will be admitted to the emergency department for chest pain observation with heaviness in her chest and heaviness here in the emergency department Disposition Clinical Impression: Chest pain Disposition: ADMITTED IP TO THIS HOSP Is patient prescribed a controlled substance at d/c from ED?: No Time of Disposition: 00:20
[2023-11-11] MEDS: SODIUM CHLORIDE 0.9% 1,000 ML IV STA ×2 (22:56)
[2023-11-11] MEDS: KETOROLAC 15 MG/ML 1 ML VIAL IVP STA (22:56)
[2023-11-12] MEDS ORDERED: MORPHINE SULFATE 4 MG/ML SYRINGE IV PRN (00:29)
[2023-11-12] MEDS ORDERED: NALOXONE 0.4 MG/ML 1 ML VIAL IV PRN (00:29)
[2023-11-12] MEDS ORDERED: ONDANSETRON 4 MG/2 ML VIAL IVP PRN (00:29)
--- NOTE | 2023-11-12 00:59 | CT ---
EXAM: CT Angiography Chest With Intravenous Contrast CLINICAL HISTORY: ITS.REASON CT Reason: PE TECHNIQUE: Axial computed tomographic angiography images of the chest with intravenous contrast. CTDI is 24.8 mGy and DLP is 558.6 mGy-cm. This CT exam was performed using one or more of the following dose reduction techniques: automated exposure control, adjustment of the mA and/or kV according to patient size, and/or use of iterative reconstruction technique. MIP reconstructed images were created and reviewed. COMPARISON: No relevant prior studies available. FINDINGS: LUNGS: No focal consolidation, pleural effusion, or pneumothorax. HEART: Within normal limits. VASCULATURE: No acute pulmonary embolism. THYROID: Within normal limits. MEDIASTINUM + LYMPH NODES: There are no pathologically enlarged mediastinal, hilar, or axillary lymph nodes. SUPERIOR ABDOMEN: The included portions of the superior abdomen are within normal limits. MUSCULOSKELETAL: Within normal limits. IMPRESSION: No acute pulmonary embolism.
[2023-11-12] MEDS: SODIUM CHLORIDE 0.9% 1,000 ML IV SCH (01:09)
[2023-11-12 06:04] VITALS: TEMP 97.8
[2023-11-12 07:47] VITALS: RESP 18
[2023-11-12] MEDS: amLODIPine 5 MG TAB PO SCH (09:30)
[2023-11-12] MEDS: FUROSEMIDE 20 MG TAB PO SCH (09:30)
--- NOTE | 2023-11-12 12:19 | P.HPIM ---
History of Present Illness H&P Date: 11/12/23 Chief Complaint: Chest pain This is a very pleasant 43-year-old patient who follows with Dr. Ej Delgadillo. Chronic stable medical conditions include essential hypertension. For which she takes amlodipine Lopressor Lasix. She is also had preeclampsia. Otherwise in good health. 3 days ago on Saturday patient noticed the central pressure. Also going to the back. Has remained rather steady. Not related with activity. The pain became worse yesterday. No shortness of breath. No fever no chills. No cough. No swelling lower extremity. Patient somewhat tearful in the ER because she is concerned about her medical bill as she may not be covered in current admission status. Cardiology was consulted. Review of systems: GEN.: None EYES: None HEENT: None NECK: None RESPIRATORY: None CARDIOVASCULAR: As above 171 GASTROINTESTINAL: None GENITOURINARY: None MUSCULOSKELETAL: None LYMPHATICS: None HEMATOLOGICAL: None PSYCHIATRY: None NEUROLOGICAL: None. Social history: Lives with her fianc. Patient smoked off-and-on for 20 years stopped 2 years ago. Physical examination: VITAL SIGNS: 97.8, 62, 16, 127 x 86, 98% room air GENERAL: BMI 47.6, reclined in bed, a bit tearful. EYES: Pupils equal. Conjunctiva nini l. HEENT: External appearance of nose and ears normal, oral cavity grossly normal. NECK: JVD not raised; masses not palpable. HEART: First and second heart sounds are normal; no edema. LUNGS: Respiratory rate normal; clear to auscultation. ABDOMEN: Soft, nontender, liver spleen not palpable, no masses palpable. PSYCH: Alert and oriented x3; mood and l. MUSCULOSKELETAL:No Clubbing/cyanosis;muscles-grossly intact NEUROLOGICAL: Cranial nerves grossly intact; no facial asymmetry, power and sensation grossly intact. LYMPHATICS: No lymph nodes palpable in the axilla and neck INVESTIGATIONS, reviewed in the clinical context: November 11, 2023: White count 11 hemoglobin 14.4 platelets 284 sodium 130 potassium 3.8 creatinine 0.87 Troponin I less than 0.012 x 3 EKG tracing personally reviewed by me-normal sinus rhythm CT angio chest with contrast: Negative for PE Assessment and plan: -Anterior chest wall pain, with some noncardiac features. Cardiac risk factors include hypertension, obesity, some history of smoking, Troponins negative. Telemetry. Cardiology consulted. -Essential hypertension Resume home dose of amlodipine, Lasix, Lopressor -Mild hyponatremia likely from Lasix Will consider discontinuing Lasix using alternative. -Full code Discussed with patient. Questions answered. Cardiology consulted. 2D echo and stress was ordered by them. . Past Medical History Past Medical History: GERD/Reflux, Hypertension Additional Past Medical History / Comment(s): Preeclampsia- May 28 2013 History of Any Multi-Drug Resistant Organisms: None Reported Past Surgical History: Adenoidectomy, Section, Cholecystectomy, Orthopedic Surgery, Tonsillectomy Additional Past Surgical History / Comment(s): pre eclampsia, c section 05/28/13 Knee arthroplasty Past Anesthesia/Blood Transfusion Reactions: Previous Problems w/ Anesthesia, Postoperative Nausea & Vomiting (PONV) Past Psychological History: Depression Smoking Status: Current every day smoker Past Alcohol Use History: Occasional Past Drug Use History: None Reported - Past Family History Father Brother(s) Family Medical History: GERD/Reflux, Hypertension Additional Family Medical History / Comment(s): BRONCHITIS, HAD GALLBLADDER SX 07-20-13 HAS INCISONS Medications and Allergies Home Medications Medication Instructions Recorded Confirmed Type Furosemide [Lasix] 20 mg PO DAILY 07/18/13 11/12/23 History Metoprolol Tartrate [Lopressor] 25 mg PO BID 11/12/23 11/12/23 History amLODIPine [Norvasc] 5 mg PO BID 11/12/23 11/12/23 History Allergies Allergy/AdvReac Type Severity Reaction Status Date / Time Penicillins Allergy Unknown Rash/Hives/Itchy Verified 11/12/23 07:23 Throat Physical Exam Vitals: Vital Signs Temp Pulse Resp BP Pulse Ox 11/12/23 07:45 77 18 138/82 100 11/12/23 06:01 97.8 F 62 16 127/86 98 11/12/23 04:27 58 L 14 96 11/12/23 03:00 64 14 99 11/12/23 01:00 68 15 123/72 98 11/12/23 00:00 75 16 127/70 99 11/11/23 22:20 97.9 F 63 15 128/80 99 11/11/23 20:09 98.0 F 81 18 149/90 99 Intake and Output 11/11/23 11/12/23 11/12/23 22:59 06:59 14:59 Other: Weight 117.934 kg Results CBC & Chem 7: 11/11/23 20:29 11/11/23 20:24 Labs: Abnormal Lab Results - Last 24 Hours (Table) 11/11/23 11/11/23 Range/Units 20:24 20:29 WBC 11.0 H (3.8-10.6) k/uL Sodium 130 L (137-145) mmol/L Glucose 132 H (74-99) mg/dL
--- NOTE | 2023-11-12 12:46 | P.CRDCN ---
History of Present Illness History of present illness: HISTORY OF PRESENT ILLNESS: This is a 43-year-old female with a past medical history significant for hypertension, morbid obesity, nicotine dependence, and depression. Patient does not follow with a product safety head. She previously followed with a product safety head in [place] about 10 years ago when she had preeclampsia. We have been asked to see the patient in consultation for chest pain. Patient examined at the bedside in the ER. Reports having CP that started Saturday that went into her back. It got worse on Saturday. The pain is in the middle of her chest and epigastric region. Pain is also in between her shoulder blades. Not worse with deep inspiration. Reports sinus drainage but no significant cough. Denies fever or SOB. DIAGNOSTICS: - EKG reveals sinus mechanism T wave inversions in lead III - Chest CTA: Negative for pulmonary embolism - Laboratory data: WBC 11.0. Hemoglobin 14.4. Platelet count 284. D-dimer 0.44. Sodium 130. Potassium 3.8. BUN 10. Creatinine 0.87. Troponin negative x 2. proBNP 28. - Current home cardiac medications include amlodipine 5 mg twice a day, metoprolol tartrate 25 mg twice a day, and Lasix 20 mg daily - No previous echocardiogram, stress test, or cardiac catheterization available in EMR for review REVIEW OF SYSTEMS: At the time of my exam: CONSTITUTIONAL: Denies fever or chills. HEENT: Denies blurred vision, vision changes, or eye pain. Denies hemoptysis CARDIOVASCULAR: Denies chest pain. Denies orthopnea. Denies PND. Denies p alpitations RESPIRATORY: Denies shortness of breath. GASTROINTESTINAL: Denies abdominal pain. Denies nausea or vomiting. HEMATOLOGIC: Denies bleeding disorders. GENITOURINARY: Denies any blood in urine. SKIN: Denies pruitis. Denies rash. PHYSICAL EXAM: VITAL SIGNS: Reviewed. GENERAL: Well-developed in no acute distress. HEENT: Head is normocephalic. Pupils are equal, round. Sclerae anicteric. Mucous membranes of the mouth are moist. Neck supple. No JVD or thyromegaly LUNGS: Respirations even and unlabored. Lungs essentially clear to auscultation bilaterally. HEART: Regular rate and rhythm. S1 and S2 heard. ABDOMEN: Soft. Nondistended. Nontender. EXTREMITIES: Normal range of motion. No clubbing or cyanosis. Peripheral pulses intact. No lower extremity edema NEUROLOGIC: Awake and alert. Oriented x 3. ASSESSMENT: Chest pain Hypertension Nicotine dependence Depression Morbid obesity: BMI 47.6 History of preeclampsia, 10 years ago PLAN: An acute coronary event has been ruled out Obtain 2D echo to assess cardiac structure and function Resume home cardiac medications Patient to undergo stress echocardiogram today Further recommendations pending patient course Nurse practitioner note has been reviewed by physician. Signing provider agrees with the documented findings, assessment, and plan of care documented by [employer] SECRETARY as a scribe. Past Medical History Past Medical History: GERD/Reflux, Hypertension Additional Past Medical History / Comment(s): Preeclampsia- May 28 2013 History of Any Multi-Drug Resistant Organisms: None Reported Past Surgical History: Adenoidectomy, Section, Cholecystectomy, Orthopedic Surgery, Tonsillectomy Additional Past Surgical History / Comment(s): pre eclampsia, c section 05/28/13 Knee arthroplasty Past Anesthesia/Blood Transfusion Reactions: Previous Problems w/ Anesthesia, Postoperative Nausea & Vomiting (PONV) Past Psychological History: Depression Smoking Status: Current every day smoker Past Alcohol Use History: Occasional Past Drug Use History: None Reported - Past Family History Father Brother(s) Family Medical History: GERD/Reflux, Hypertension Additional Family Medical History / Comment(s): BRONCHITIS, HAD GALLBLADDER SX 5- HAS INCISONS Medications and Allergies Home Medications Medication Instructions Recorded Confirmed Type Furosemide [Lasix] 20 mg PO DAILY 07/18/13 11/12/23 History Metoprolol Tartrate [Lopressor] 25 mg PO BID 11/12/23 11/12/23 History amLODIPine [Norvasc] 5 mg PO BID 11/12/23 11/12/23 History Allergies Allergy/AdvReac Type Severity Reaction Status Date / Time Penicillins Allergy Unknown Rash/Hives/Itchy Verified 11/12/23 07:23 Throat Physical Exam Vitals: Vital Signs Temp Pulse Resp BP Pulse Ox 11/12/23 07:45 77 18 138/82 100 11/12/23 06:01 97.8 F 62 16 127/86 98 11/12/23 04:27 58 L 14 96 11/12/23 03:00 64 14 99 11/12/23 01:00 68 15 123/72 98 11/12/23 00:00 75 16 127/70 99 11/11/23 22:20 97.9 F 63 15 128/80 99 11/11/23 20:09 98.0 F 81 18 149/90 99 Intake and Output 11/11/23 11/12/23 11/12/23 22:59 06:59 14:59 Other: Weight 117.934 kg Results 11/11/23 20:29 11/11/23 20:24 Cardiac Enzymes 11/11/23 11/11/23 11/12/23 Range/Units 20:24 20:24 03:11 AST 29 (14-36) U/L Troponin I <0.012 <0.012 (0.000-0.034) ng/mL Coagulation 11/11/23 Range/Units 20:29 PT 10.3 (10.0-12.5) sec APTT 24.1 (22.0-30.0) sec CBC 11/11/23 Range/Units 20:29 WBC 11.0 H (3.8-10.6) k/uL RBC 4.44 (3.80-5.40) m/uL Hgb 14.4 (11.4-16.0) gm/dL Hct 42.1 (34.0-46.0) % Plt Count 284 (150-450) k/uL Comprehensive Metabolic Panel 11/11/23 Range/Units 20:24 Sodium 130 L (137-145) mmol/L Potassium 3.8 (3.5-5.1) mmol/L Chloride 103 (98-107) mmol/L Carbon Dioxide 24 (22-30) mmol/L BUN 10 (7-17) mg/dL Creatinine 0.87 (0.52-1.04) mg/dL Glucose 132 H (74-99) mg/dL Calcium 9.5 (8.4-10.2) mg/dL AST 29 (14-36) U/L ALT 26 (4-34) U/L Alkaline Phosphatase 84 (38-126) U/L Total Protein 7.0 (6.3-8.2) g/dL Albumin 4.4 (3.5-5.0) g/dL Current Medications Generic Name Dose Route Start Last Admin Trade Name Freq PRN Reason Stop Dose Admin Sodium Chloride 1,000 mls @ 75 mls/hr 11/12/23 00:30 08/27/24 01:09 Saline 0.9% IV 75 mls/hr .[id number] ASHIA Administration Morphine Sulfate 4 mg 11/12/23 00:29 Morphine Sulfate 4 Mg/Ml Syringe IV Q4HR PRN Severe Pain (Scale 7 to 10) Naloxone HCl 0.2 mg 11/12/23 00:29 Naloxone 0.4 Mg/Ml 1 Ml Vial IV Q2M PRN Opioid Reversal Ondansetron HCl 4 mg 11/12/23 00:29 Ondansetron 4 Mg/2 Ml Vial IVP Q8HR PRN Nausea And Vomiting Intake and Output 11/11/23 11/12/23 11/12/23 22:59 06:59 14:59 Other: Weight 117.934 kg 11/11/23 20:29 11/11/23 20:24
--- NOTE | 2023-11-12 13:21 | CA ---
Stress Echo Report Bailey Lopez Age: 43 Gender: F : 1980 Exam Date: 11/12/2023 12:06 Exam Location: [facility] Ht (in): 62 Wt (lb): 260 Ordering Physician: Dottie Dwyer Referring Physician: [id number] Shear Grinder Operator: Maggie Garcia RDCS Technologist Procedure CPT: Indication: CP ICD-9 Codes: Rhythm: Patient History: CHEST PAIN, PALPITATIONS, HTN, FAMILY HX OF HEART DISEASE, PRIOR SMOKER, ASTHMA Cardiac Medications: Medications in past 24 hours: Contrast: Definity Stress Results Protocol: Felipe Total dose(mL): 3 Exercise Duration (min:sec): 7:[address] Depression (mm): Angina Score: Cisse Score: METS: 9.2 Resting HR: 88 Resting BP: 132 / 102 Peak HR: 171 Peak BP: 211 / 95 Max Predicted HR: 179 96 % Max Predicted HR Target HR: 152 Double Product: [id number] Stress Summary: BP Response: Reason for Termination: TARGET HR REACHED/MAX EXERTION Cardiac Symptoms: DIFFICULTY IN BREATHING ECG Analysis Resting ECG: Stress ECG: Arrhythmia: Echo Analysis Resting Echo: Peak Echo Analysis: MEASUREMENTS (Male/Female) Normal Values CONCLUSIONS Patient underwent exercise stress echo with a Felipe protocol treadmill stress test. Patient exercised into Stage 3 for a total of 7 minutes and 16 seconds reaching a total of 9.2 METS. Patient's maximum heart rate was 171 which represented 95% age- predicted maximum heart rate. Stress EKG portion: At baseline patient's EKG showed normal sinus rhythm, normal axis, no significant ST or T wave abnormalities. At peak exercise, EKG showed rare PVCs and no significant ST or T wave abnormalities. Stress echo portion: 2-D echocardiogram was performed in the parasternal long, personal short, apical 2 and apical four-chamber views at rest, peak exercise and in recovery. At baseline, echocardiogram showed left ventricular ejection fraction 55-60% without wall motion abnormalities. With peak exercise, echocardiogram shows improvement in left ventricular ejection fraction, increase contractility, decrease in left ventricular end systolic dimension without wall motion abnormalities consistent with a normal response to exercise. Conclusions: 1. Normal EKG and echo response to exercise without evidence of inducible ischemia. 2. Fair exercise capacity. Dr. Charan Espana DO (Electronically Signed) Final Date: 12 November 2023 13:20
[2023-11-12] MEDS: ENOXAPARIN 40 MG/0.4 ML SYRINGE SQ SCH (14:21)
[2023-11-12 15:05] VITALS: BP 154/98; PULSE 67
--- NOTE | 2023-11-12 15:59 | CA ---
Transthoracic Echo Report Name: Bailey Lopez Age: 43 Gender: F : 1980 Exam Date: 11/12/2023 12:25 Exam Location: [facility] Ht (in): 62 Wt (lb): 260 Ordering Physician: Dottie Dwyer Attending/Referring Phys: [id number], Reymundo [employer] Maggie Garcia RDCS Procedure CPT: Indications: LV function, CP Cardiac Hx: Technical Quality: Fair Contrast 1: Definity Total Dose (mL): 2 Contrast 2: Total Dose (mL): MEASUREMENTS (Male / Female) Normal Values 2D ECHO LV Diastolic Diameter PLAX 3.6 cm 4.2 - 5.9 / 3.9 - 5.3 cm LV Systolic Diameter PLAX 2.0 cm IVS Diastolic Thickness 1.2 cm 0.6 - 1.0 / 0.6 - 0.9 cm LVPW Diastolic Thickness 1.2 cm 0.6 - 1.0 / 0.6 - 0.9 cm LV Relative Wall Thickness 0.7 RV Internal Dim ED PLAX 3.7 cm LA Volume 47.4 cm??? 18 - 58 / 22 - 52 cm??? LA Volume Index 20.2 cm???/m??? 16 - 28 cm???/m??? M-MODE Aortic Root Diameter MM 2.6 cm LA Systolic Diameter MM 3.7 cm LA Ao Ratio MM 1.4 DOPPLER AV Peak Velocity 165.8 cm/s AV Peak Gradient 11.0 mmHg AV Mean Velocity 104.2 cm/s AV Mean Gradient 5.0 mmHg AV Velocity Time Integral 26.6 cm LVOT Peak Velocity 153.5 cm/s LVOT Peak Gradient 9.4 mmHg LVOT Velocity Time Integral 31.8 cm MV Area PHT 6.9 cm??? Mitral E Point Velocity 100.2 cm/s Mitral A Point Velocity 85.8 cm/s Mitral E to A Ratio 1.2 MV Deceleration Time 110.7 ms MV E' Velocity 8.8 cm/s Mitral E to MV E' Ratio 11.4 FINDINGS Left Ventricle Mildly increased left ventricular wall thickness. Left ventricular cavity size normal. Normal left ventricular systolic function with no obvious regional wall motion abnormalities. Left ventricular ejection fraction is estimated at 55-60 %. Grade 1 diastolic dysfunction. Right Ventricle Mild right ventricular dilatation. Right ventricular systolic pressure within normal limits. Right Atrium Normal right atrial size. Left Atrium Normal left atrial size. Mitral Valve Structurally normal mitral valve. No mitral stenosis. Trace to mild mitral regurgitation. Aortic Valve Trileaflet aortic valve. No aortic valve stenosis or regurgitation. Tricuspid Valve Structurally normal tricuspid valve. Trace to mild tricuspid regurgitation. Pulmonic Valve Structurally normal pulmonic valve. Pericardium No pericardial effusion. Aorta Normal size aortic root and proximal ascending aorta. CONCLUSIONS Left ventricular ejection fraction 55-60% Mildly increased left ventricular wall thickness Trace to mild mitral regurgitation Trace mild tricuspid regurgitation No pericardial effusion Previewed by: Dr. Charan Espana DO (Electronically Signed) Final Date: 12 November 2023 15:58
--- NOTE | 2023-11-12 19:44 | P.DS ---
Providers Date of admission: 11/12/23 00:29 Expected date of discharge: 11/12/23 Attending physician: Isaac Wu Consults: 11/12/23 00:29 Consult Physician Routine Consulting Provider: Marta Kovacs Consult Reason/Comments: cp Do you want consulting provider notified?: Yes Primary care physician: Ej Brown [facility] Course: Chief Complaint: Chest pain This is a very pleasant 43-year-old patient who follows with Dr. Ej Delgadillo. Chronic stable medical conditions include essential hypertension. For which she takes amlodipine Lopressor Lasix. She is also had preeclampsia. Otherwise in good health. 3 days ago on Saturday patient noticed the central pressure. Also going to the back. Has remained rather steady. Not related with activity. The pain became worse yesterday. No shortness of breath. No fever no chills. No cough. No swelling lower extremity. Patient somewhat tearful in the ER because she is concerned about her medical bill as she may not be covered in current admission status. Cardiology was consulted. Patient's 2D echo and stress echocardiogram both negative. Was cleared by cardiology for discharge Social history: Lives with her fianc. Patient smoked off-and-on for 20 years stopped 2 years ago. Physical examination: VITAL SIGNS: 97.8, 62, 16, 127 x 86, 98% room air GENERAL: BMI 47.6, reclined in bed, a bit tearful. EYES: Pupils equal. Conjunctiva nini l. HEENT: External appearance of nose and ears normal, oral cavity grossly normal. NECK: JVD not raised; masses not palpable. HEART: First and second heart sounds are normal; no edema. LUNGS: Respiratory rate normal; clear to auscultation. ABDOMEN: Soft, nontender, liver spleen not palpable, no masses palpable. PSYCH: Alert and oriented x3; mood and l. MUSCULOSKELETAL:No Clubbing/cyanosis;muscles-grossly intact INVESTIGATIONS, reviewed in the clinical context: 2D echocardiogram: EF 55% Stress echocardiogram: Negative for ischemia November 11, 2023: White count 11 hemoglobin 14.4 platelets 284 sodium 130 potassium 3.8 creatinine 0.87 Troponin I less than 0.012 x 3 EKG tracing personally reviewed by me-normal sinus rhythm CT angio chest with contrast: Negative for PE Assessment and plan: -Anterior chest wall pain, probably musculoskeletal 2D echo and stress echocardiogram unremarkable. -Essential hypertension Resume home dose of amlodipine, Lasix, Lopressor -Mild hyponatremia likely from Lasix -Full code Disposition: Home . Past Medical History Past Medical History: GERD/Reflux, Hypertension Additional Past Medical History / Comment(s): Preeclampsia- May 28 2013 History of Any Multi-Drug Resistant Organisms: None Reported Past Surgical History: Adenoidectomy, Section, Cholecystectomy, Orthopedic Surgery, Tonsillectomy Additional Past Surgical History / Comment(s): pre eclampsia, c section 05/28/13 Knee arthroplasty Past Anesthesia/Blood Transfusion Reactions: Previous Problems w/ Anesthesia, Postoperative Nausea & Vomiting (PONV) Past Psychological History: Depression Smoking Status: Current every day smoker Past Alcohol Use History: Occasional Past Drug Use History: None Reported Plan - Discharge Summary New Discharge Prescriptions: New Aspirin 81 mg PO DAILY #30 tab Continue Furosemide [Lasix] 20 mg PO DAILY amLODIPine [Norvasc] 5 mg PO BID Discontinued Metoprolol Tartrate [Lopressor] 25 mg PO BID Discharge Medication List Furosemide [Lasix] 20 mg PO DAILY 07/18/13 [History] Aspirin 81 mg PO DAILY #30 tab 11/12/23 [Rx] amLODIPine [Norvasc] 5 mg PO BID 11/12/23 [History] Follow up Appointment(s)/Referral(s): Charan Espana DO [STAFF PHYSICIAN] - 6 Weeks Ej Brown DO [Primary Care Provider] - 1-2 days Discharge Disposition: HOME SELF-CARE
[2023-11-12] MEDS ORDERED: METOPROLOL TARTRATE 25 MG TAB PO SCH (21:00)
== END 2023-11-12 19:29 | disposition home or self-care (01) ==
LOC: EC 20:03 → 6NMEDSUR 11-12 00:29
PROVIDERS: ADMIT Hospitalist; ATTEND Hospitalist
DX: R07.89 Other chest pain (principal); I10 Essential (primary) hypertension; E87.1 Hypo-osmolality and hyponatremia; K21.9 Gastro-esophageal reflux disease without esophagitis; F32.A Depression, unspecified; E66.01 Morbid (severe) obesity due to excess calories; Z68.42 Body mass index [BMI] 45.0-49.9, adult; Z87.891 Personal history of nicotine dependence; Z79.899 Other long term (current) drug therapy; Z88.0 Allergy status to penicillin
CPT/HCPCS: 36415; 71275; 80053; 83690; 83880; 84484; 85025; 85379; 85610; 85730; 93005; 93306; 93351; 96361; 96374; 99285